=== PATIENT | female | born 1955 ===

== ENCOUNTER 2019-05-10 01:41 | Outpatient (CLI) | payer SELFPAY ==
[2019-05-10 08:47] LABS: HEMOGLOBIN A1C 5.7 % (4.5-6.2)
[2019-05-10 08:55] LABS: CHOL/HDL RATIO 3.49 (0.00-4.99)
== END 2019-05-10 23:59 | disposition home or self-care (01) ==
LOC: HW HEART 01:41
DX: Z13.6 Encounter for screening for cardiovascular disorders (principal)
CPT/HCPCS: 36415

== ENCOUNTER 2019-05-28 04:27 | Outpatient (CLI) | payer SELFPAY | END 2019-05-28 23:59 | disposition home or self-care (01) | LOC: HW VAS 04:27 | DX: Z13.6 Encounter for screening for cardiovascular disorders (principal) ==